=== PATIENT | female | born 1950 | race Caucasian/White ===

== ENCOUNTER → 2024-09-16 | Outpatient (CLI) | payer MEDICARE ==
[2024-09-16 08:19] LABS: CREATININE SERUM 1.11 mg/dL (0.59-1.40); EST GFR, NON-AA 48.3 (>/=60)
== END | disposition home or self-care (01) ==
LOC: RAD 07:54
PROVIDERS: ATTEND Nurse Practitioner Family
DX: I67.82 Cerebral ischemia (principal); R42 Dizziness and giddiness; R47.02 Dysphasia
CPT/HCPCS: 70470; 36415; 82565; Q9965